=== PATIENT | female | born 1985 | race Caucasian/White ===

== ENCOUNTER 2025-07-24 21:45 | Emergency (ER) | payer MEDICAID, SELFPAY ==
[2025-07-24 21:47] VITALS: BP 97/64; PULSE 50; RESP 16; TEMP 36.6; O2SAT 99; BMI 22.5
[2025-07-24 22:00] VITALS: BP 102/59; PULSE 45; RESP 16; O2SAT 100
[2025-07-24] MEDS: 0.9% Normal Saline (1000mL) 1,000 ML 999 ML IV ×2 (22:00→23:00)
--- NOTE | 2025-07-24 22:08 | US_ITS ---
PROCEDURE: TRANSVAGINAL W/PREG US 07/24/2025 REASON FOR EXAM: RETAINED PRODUCTS OF CONCEPTION TECHNIQUE: Procedure Code: USTVAGP Modality: US Procedure: TRANSVAGINAL W/PREG US FINDINGS The uterus measures 7.3 x 8.7 x 6.5 cm. No fibroids. Endometrium measures 8 mm. No free fluid in the posterior cul-de-sac. Right ovary measures 2.9 x 1.7 x 1.3 cm. No obvious lesions. Left ovary measures 2.4 x 1.6 x 2 cm. No obvious lesions. No gestation sac could be visualized at this time. No pole. US/Transvaginal w/Preg US IMPRESSION: No pole at this time. No obvious abnormalities. Reading Location[facility] [address]
[2025-07-24 22:34] LABS: Mucous, Urine 0 SEEN /hpf (<or=2+); Squamous Epithelial Cells - UA 0 SEEN /hpf (5-10)
[2025-07-24 22:35] LABS: Hematocrit 33.6 % (37-47); Hemoglobin 12.0 g/dL (12.0-15.0); Immature Granulocytes Count 0.060 X10^3/uL (0.0-0.0); Mean Corp Hgb Conc 35.7 g/dL (32-36); Mean Corpuscular Volume 91.6 fL (81-99); Mean Platelet Vol. 9.9 fl (6.2-12.0); NRBC Flagged by Analyzer 0 % (0-5); Platelet Count 267 K/mm3 (150-450); RBC Distribution Width CV 13.5 % (11.6-14.6); RBC Distribution Width SD 45.7 fl (35.1-43.9); Red Blood Count 3.67 M/mm3 (4.2-5.4); White Blood Count 15.9 K/mm3 (4.4-11.0)
[2025-07-24 22:38] LABS: Color, Urine Red (Yellow); Glucose, Dipstick Normal (Normal); Ketone-Dipstick Negative (Negative); Leukocyte Esterase-Dipstick 25 /ul (Negative); Nitrite-Dipstick Negative (Negative); Occult Blood-Urine 250 /ul (Negative); Protein-Dipstick 500 mg/dl (Negative); Specific Gravity, Urine 1.010 (1.002-1.030); Urine Bilirubin Dipstick Negative (Negative)
[2025-07-24 22:45] LABS: Prothrombin Time (Protime)PT. 11.9 SECONDS (11.7-14.9)
[2025-07-24 22:46] LABS: Partial Thromboplast Time 28.3 Seconds (24.1-36.2)
[2025-07-24 22:53] LABS: Red Blood Cells-Urine 50-100 SEEN /hpf (0-5)
[2025-07-24 22:56] LABS: Anion Gap 9 (5-15); BUN 9 mg/dL (4-19); BUN/Creat Ratio 12.3 RATIO (10-20); Calcium,Total 9.0 mg/dL (7.6-11.0); Carbon Dioxide 24.2 mmol/L (21.0-32.0); Chloride 105 mmol/L (98-108); Estimated Creatinine Clearance 103.02 ml/min (50-250); Glucose 87 mg/dL (70-99); Potassium 3.2 mmol/L (3.3-5.1)
[2025-07-24 23:00] VITALS: BP 114/70; PULSE 44; RESP 16; O2SAT 100
[2025-07-24 23:02] LABS: hCG Titer Quant., Serum 195 mIU/mL (<9 non-preg)
[2025-07-24 23:30] VITALS: BP 107/73; PULSE 46; RESP 16; O2SAT 100
[2025-07-25 00:47] VITALS: BP 91/69; PULSE 43; RESP 16; TEMP 36.8; O2SAT 100
--- NOTE | 2025-07-25 00:50 | ED.VIS.FEGU ---
HPI HPI - Female History of Present Illness Chief Complaint: Vag Bleeding Informant: patient and spouse/S.O. Narrative Narrative: Patient is a 40-year-old female who is a with 2 spontaneous miscarriages. She states that she believes she was roughly 12 weeks when she began with a spontaneous miscarriage. She states she has been dealing with miscarriage symptoms for approximately 2 weeks. She reports she was seen recently at the [facility] office/Dr. North. She reports that the ultrasound at that time showed a gestational sac but no heartbeat and the decision was made to continue to watch her for another few days to see if she would have a spontaneous miscarriage or need a D&C. Patient reports that this evening she had increased cramping and pain in the abdomen with expresses of large clot and bleeding. She denies any history of bleeding disorder or blood thinner use. She states that the symptoms are more severe/intense than they have been and this concerned her and therefore she presents for evaluation. The patient does state that after she passed the larger clot that she does overall feel better at this time [facility] Medical History (Updated 07/25/25 @ 00:[address] Geoffrey Hook, DO) Miscarriage Endometriosis Home Medications ?Medication ?Instructions ?Recorded ?Last Taken ?Type ondansetron 4 mg disintegrating 4 mg PO TID PRN nausea and 07/25/25 Unknown Rx tablet vomiting #21 tabs oxycodone-acetaminophen 5 mg-325 1 tab PO Q6H PRN pain 3 days #12 07/25/25 Unknown Rx mg tablet (Percocet) tabs sulfamethoxazole 800 1 tab PO BID 7 days #14 tabs 07/25/25 Unknown Rx mg-trimethoprim 160 mg tablet (Bactrim DS) Allergy/AdvReac Type Severity Reaction Status Date / Time No Known Allergies Allergy Verified 07/24/25 21:47 Social History Smoking Status: Current every day smoker tobacco type: e-cigarettes ROS ROS ED Constitutional Constitutional ED: Denies chills or fever(s) Eyes Eyes: Denies blurry vision or change in vision ENT ENT ED: Denies sore throat Cardiovascular Cardiovascular: Denies chest pain or palpitations Respiratory/Chest Respiratory/Chest: Denies cough or dyspnea Gastrointestinal Gastrointestinal: Reports abdominal pain and nausea; Denies diarrhea or vomiting Genitourinary Genitourinary ED: Reports other Details: Positive vaginal bleeding ; Denies dysuria Musculoskeletal Musculoskeletal: Denies myalgias Integumentary Denies rash Neurologic Neurologic: Denies headache(s) or weakness Hematologic/Lymphatic Hematologic/Lymphatic: Denies easy bleeding or easy bruising EXAM Physical Exam Const Vital Signs: 07/24/25 21:47 07/24/25 22:00 07/24/25 23:00 Temperature 97.8 F Temperature Source Oral Pulse Rate 50 L 45 L 44 L Respiratory Rate 16 16 16 Blood Pressure 97/64 102/59 L 114/70 Blood Pressure Mean 75 73 84 Pulse Ox 99 100 100 Oxygen Delivery Method Room Air Room Air Room Air 07/24/25 23:30 07/25/25 00:47 Temperature 98.2 F Temperature Source Pulse Rate 46 L 43 L Respiratory Rate 16 16 Blood Pressure 107/73 91/69 Blood Pressure Mean 84 76 Pulse Ox 100 100 Oxygen Delivery Method Room Air Positive well nourished and well developed General Appearance ED: well developed; Negative for pallor HEENT HEENT Narrative: Normocephalic atraumatic Eyes PERRL and EOMs intact bilaterally General Eye ED: Negative for pale conjunctiva or scleral icterus Neck supple Neck Narrative: No nuchal rigidity or meningeal signs Resp normal respiratory effort and clear to auscultation bilaterally Cardio regular rhythm Rate: bradycardia and other Other Details: Heart is bradycardic rate with a regular rhythm No murmurs rubs or gallops Radial and carotid pulses are equal and symmetric GI non-distended and no masses GI Narrative: Abdomen is soft and nondistended with normal active bowel sounds. There is mild pain with palpation in the suprapubic region without voluntary guarding or rigidity. No pulsatile mass or peritoneal signs. No organomegaly noted Auscultation: normoactive bowel sounds Palpation: soft Back/Spine no CVA tenderness Extremity normal to inspection and full ROM Extremity Narrative: No asymmetric edema no pitting edema negative Homans' sign bilaterally Neuro oriented x3, CN's II-XII intact bilaterally and no sensory deficits noted Sensorium / Orientation: alert Motor Exam: strength 5/5 throughout Psych mental status grossly normal Skin no rashes or lesions noted and no wounds Skin Narrative: Capillary refill is less than 3 seconds General Skin Exam: Negative for jaundice or pallor MDM MDM MDM Narrative Medical decision making narrative: Patient arrived to the ER bradycardic with a soft blood pressure but states her heart rate is typically slow and her blood pressure is usually 90/60. She states that she is dealing with a known miscarriage but that this evening the pain and passage of clot was more severe than it has been which concerned her. In order to assess for retained products of conception versus progression of a spontaneous miscarriage versus acute blood loss anemia I did elect to perform basic laboratory studies as well as a transvaginal ultrasound. The patient's white count is elevated at 15.9 and this could be due to or stress response or infection. Otherwise her hemoglobin and hematocrit are stable at 12 and 34 going against need for blood transfusion. She has no sign of acute kidney injury or electrolyte abnormality. Her quantitative value is 195 consistent with her recent status but now active miscarriage. Her blood type is AB+ and therefore there is no need for administration of RhoGAM. The transvaginal ultrasound did not show any products within the uterus and the patient did report at her recent [facility] there was a gestational sac on the imaging. This would indicate the patient has now had a spontaneous completion to her miscarriage. I did discuss the case with [facility] on-call. She agrees that with the repeat ultrasound showing no retained products and the patient not requiring a blood transfusion or having a elevated temperature that there is no need for admission or emergent D&C and she can follow-up as an outpatient on Saturday. The patient's urine sample does show changes concerning for infection and therefore will be sent for culture and I will start her on Bactrim for potential UTI. However as she does not have retained products of conception by ultrasound she does not require a blood transfusion and is not showing findings concerning for sepsis she is otherwise safe for discharge History & Record Review Discussion w/independent historian: Patient and Significant other Lab Data Attestation: I reviewed the patient's lab results. Labs: Laboratory Results - last 24 hr 07/24/25 22:19 WBC 15.9 H RBC 3.67 L Hgb 12.0 Hct 33.6 L MCV 91.6 MCH 32.7 H MCHC 35.7 RDW Std Deviation 45.7 H RDW Coeff of Steve 13.5 Plt Count 267 MPV 9.9 Immature Gran % (Auto) 0.400 Neut % (Auto) 75.6 H Lymph % (Auto) 15.2 L [place] % (Auto) 6.9 Eos % (Auto) 1.4 Baso % (Auto) 0.5 Absolute Neuts (auto) 12.0 H Absolute Lymphs (auto) 2.42 Nucleated RBC % 0 PT 11.9 INR 0.9 APTT 28.3 Sodium 139 Potassium 3.2 L Chloride 105 Carbon Dioxide 24.2 Anion Gap 9 BUN 9 Creatinine 0.72 Estim Creat Clear Calc 103.02 Est GFR (MDRD) Non-Af 111 BUN/Creatinine Ratio 12.3 Glucose 87 Lactic Acid < 1.0 Calcium 9.0 HCG, Quant 195 H Urine Color Red Urine Clarity Cloudy Urine pH 7.0 Ur Specific [place] 1.010 Urine Protein 500 H Urine Glucose (UA) Normal Urine Ketones Negative Urine Occult Blood 250 H Urine Nitrite Negative Urine Bilirubin Negative Urine Urobilinogen Normal Ur Leukocyte Esterase 25 H Urine RBC 50-100 SEEN Urine WBC 5-10 SEEN Ur Squamous Epith Cells 0 SEEN Urine Bacteria 2+ Urine Mucus 0 SEEN Blood Type AB POSITIVE Radiography Diagnostic Testing: Clinical Impression(s) from Imaging Studies Obstetrics Ultrasound 07/24/25 22:08 IMPRESSION: No pole at this time. No obvious abnormalities. 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 Discharge Plan Triage Chief Complaint: Vag Bleeding ED Provider: Geoffrey Hook Dx/Rx/DC Orders Clinical Impression: Miscarriage, UTI (urinary tract infection) Instructions: UTIs, Miscarriage Dc Prescriptions: New ondansetron 4 mg tablet,disintegrating 4 mg PO TID PRN (Reason: nausea and vomiting) Qty: 21 0RF sulfamethoxazole-trimethoprim [Bactrim DS] 800-160 mg tablet 1 tab PO BID 7 Days Qty: 14 0RF oxycodone-acetaminophen [Percocet] 5-325 mg tablet 1 tab PO Q6H PRN (Reason: pain) 3 Days Qty: 12 0RF Primary Care Provider: Care Physician,No Primary Referrals: Sarahy North MD [Med Staff - Active Staff, Obstetrics-Gynecology (OBGYN)] Care Physician,No Primary [Primary Care Provider, Medical] Activity Restrictions/Additional Instructions: Please follow-up with [facility] on Saturday for repeat evaluation. If you develop a fever worsening pain or bleeding or have any further concerns please return to the ER for repeat evaluation Print Language: Tunisian Disposition Disposition: Home, Self Care Discharge Date/Time: 07/25/25 00:57
[2025-07-25] MEDS: Smz/Tmp Ds Tablet 1 TABLET PO (00:56)
== END 2025-07-25 00:57 | disposition home or self-care (01) ==
PROVIDERS: Emergency Provider Emergency Medicine; Visit Provider Emergency Medicine
DX: O03.88 Urinary tract infection following complete or unspecified spontaneous abortion (principal)
CPT/HCPCS: 76817; 80048; 81001; 83605; 84702; 85025; 85610; 85730; 86900; 86901; 87086; 96361; 96374; 96375; 99285; A4216; J2405